=== PATIENT | female | born 1990 | race Caucasian/White ===

== ENCOUNTER → 2018-06-27 19:25 | Outpatient (CLI) | payer OTHER, SELFPAY | PROVIDERS: Family Provider Physician Assistant; PCP Physician Assistant; Visit Provider Physician Assistant | DX: N94.9 Unspecified condition associated with female genital organs and menstrual cycle (principal) | CPT/HCPCS: 87210 ==

== ENCOUNTER → 2020-01-23 08:53 | Outpatient (CLI) | payer OTHER, SELFPAY ==
[2020-01-23 10:03] LABS: Hematocrit 40.6 % (36-46); Hemoglobin 13.7 g/dL (12.0-16.0); Mean Corpuscular HGB Conc 33.9 % (30-36); Mean Corpuscular Hemoglobin 31.7 PG (26-34); Mean Corpuscular Volume 93.8 fL (80-100); Platelet Count 183 X10^3/uL (150-400); Red Blood Cell Count 4.33 X10^6/uL (4.0-5.2); White Blood Cell Count 4.4 X10^3/uL (4.5-11.0)
[2020-01-23 10:31] LABS: Alanine Aminotransferase 23 IU/L (<35); Albumin 4.3 g/dL (3.5-5.0); Albumin Globulin Ratio 1.3 (1.0-2.8); Alkaline Phosphatase 52 U/L (38-126); Aspartate Aminotransferase 26 IU/L (14-36); BUN Creatinine Ratio 17.9 (6-22); Bilirubin Total 0.5 mg/dL (0.2-1.3); Blood Urea Nitrogen 15 mg/dL (7-17); Calcium 9.5 mg/dL (8.4-10.2); Carbon Dioxide 27 mmol/L (22-32); Chloride 104 mmol/L (98-107); Cholesterol 281 mg/dL (140-199); Estimated Glomerular Filt Rate > 60.0 mL/min (>60); Globulin 3.4 g/dL (1.7-4.1); Glucose 88 mg/dL (70-100); HDL Cholesterol 52 mg/dL (40-60); HEMOLYSIS < 15 (0-50); LDL Cholesterol Calculated 192 mg/dL (<100); Potassium 4.2 mmol/L (3.4-5.1); Sodium 139 mmol/L (137-145); Total Protein 7.7 g/dL (6.3-8.2); Triglycerides 185 mg/dL (35-150)
== END ==
PROVIDERS: Family Provider Physician Assistant; PCP Nurse Practitioner Family; Referring Provider Nurse Practitioner Family; Visit Provider Nurse Practitioner Family
DX: Z00.00 Encounter for general adult medical examination without abnormal findings (principal); F41.9 Anxiety disorder, unspecified; Z13.6 Encounter for screening for cardiovascular disorders
CPT/HCPCS: 36415; 80053; 80061; 84443; 85027

== ENCOUNTER → 2020-07-27 16:40 | Outpatient (CLI) | payer OTHER, SELFPAY ==
[2020-07-27] MEDS: COVID-19 VACC #1, MRNA(MOD) 100 MCG/0.5 ML VIAL IM (16:45)
== END ==
PROVIDERS: Family Provider Physician Assistant; PCP Nurse Practitioner Family; Visit Provider Internal Medicine
DX: Z23 Encounter for immunization (principal)
CPT/HCPCS: 0011A; 91301

== ENCOUNTER → 2020-08-24 09:43 | Outpatient (CLI) | payer OTHER, SELFPAY ==
[2020-08-24] MEDS: COVID-19 VACC #2, MRNA(MOD) 100 MCG/0.5 ML VIAL IM (09:48)
== END ==
PROVIDERS: PCP Nurse Practitioner Family; Visit Provider Internal Medicine
DX: Z23 Encounter for immunization (principal)
CPT/HCPCS: 0012A; 91301

== ENCOUNTER → 2021-01-10 06:59 | Outpatient (CLI) | payer OTHER, SELFPAY ==
[2021-01-10 08:06] LABS: Hematocrit 39.2 % (36-46); Hemoglobin 13.2 g/dL (12.0-16.0); Mean Corpuscular HGB Conc 33.7 % (30-36); Mean Corpuscular Hemoglobin 32.1 PG (26-34); Mean Corpuscular Volume 95.1 fL (80-100); Platelet Count 187 X10^3/uL (150-400); Red Blood Cell Count 4.12 X10^6/uL (4.0-5.2); Red Cell Distribution Width 12.3 % (11.6-14.8); White Blood Cell Count 4.4 X10^3/uL (4.5-11.0)
[2021-01-10 08:33] LABS: Alanine Aminotransferase 15 IU/L (<35); Albumin 4.3 g/dL (3.5-5.0); Albumin Globulin Ratio 1.4 (1.0-2.8); Alkaline Phosphatase 41 U/L (38-126); Aspartate Aminotransferase 23 IU/L (14-36); BUN Creatinine Ratio 13.5 (6-22); Bilirubin Total 0.3 mg/dL (0.2-1.3); Blood Urea Nitrogen 10 mg/dL (7-17); Calcium 9.4 mg/dL (8.4-10.2); Carbon Dioxide 25 mmol/L (22-32); Chloride 105 mmol/L (98-107); Cholesterol 271 mg/dL (140-199); Estimated Glomerular Filt Rate > 60.0 mL/min (>60); Globulin 3.1 g/dL (1.7-4.1); Glucose 84 mg/dL (70-100); HDL Cholesterol 54 mg/dL (40-60); HEMOLYSIS < 15 (0-50); LDL Cholesterol Calculated 167 mg/dL (<100); Potassium 4.2 mmol/L (3.4-5.1); Sodium 137 mmol/L (137-145); Total Protein 7.4 g/dL (6.3-8.2); Triglycerides 248 mg/dL (35-150)
[2021-01-10 08:44] LABS: Vitamin D 25 Hydroxy (D3) 22.9 ng/mL (30.0-100.0)
[2021-01-10 09:21] LABS: Vitamin B12 Reflex MMA if <400 223 pg/mL (239-931)
[2021-01-12 00:55] LABS: Methylmalonic Acid,Serum 181 nmol/L (0-378)
[2021-01-12 12:09] LABS: C Peptide 0.9 ng/mL (1.1-4.4); Insulin Level Total 3.3 uIU/mL (2.6-24.9)
[2021-01-12 17:48] LABS: Beta-Hydroxybutyrate 1.1 mg/dL (.)
== END ==
PROVIDERS: PCP Nurse Practitioner Family; Referring Provider Nurse Practitioner Family; Visit Provider Nurse Practitioner Family
DX: E16.2 Hypoglycemia, unspecified (principal); E78.2 Mixed hyperlipidemia; F41.9 Anxiety disorder, unspecified; Z13.6 Encounter for screening for cardiovascular disorders; Z00.00 Encounter for general adult medical examination without abnormal findings
CPT/HCPCS: 36415; 80053; 80061; 82306; 82607; 83525; 83921; 84443; 84681; 85027

== ENCOUNTER → 2021-03-13 15:03 | Outpatient (CLI) | payer OTHER, SELFPAY ==
[2021-03-13 16:02] LABS: Cholesterol 271 mg/dL (140-199); HDL Cholesterol 60 mg/dL (40-60); LDL Cholesterol Calculated 180 mg/dL (<100); Triglycerides 154 mg/dL (35-150)
[2021-03-13 16:53] LABS: Vitamin B12 298 pg/mL (239-931)
[2021-03-13 17:27] LABS: Vitamin D 25 Hydroxy (D3) 50.8 ng/mL (30.0-100.0)
[2021-03-14 08:13] LABS: C Peptide 4.2 ng/mL (1.1-4.4); Insulin Level Total 21.8 uIU/mL (2.6-24.9)
== END ==
PROVIDERS: PCP Nurse Practitioner Family; Referring Provider Nurse Practitioner Family; Visit Provider Nurse Practitioner Family
DX: E53.9 Vitamin B deficiency, unspecified (principal); E55.9 Vitamin D deficiency, unspecified; E78.2 Mixed hyperlipidemia; E16.2 Hypoglycemia, unspecified; R89.9 Unspecified abnormal finding in specimens from other organs, systems and tissues
CPT/HCPCS: 36415; 80061; 82306; 82607; 83525; 84681

== ENCOUNTER → 2022-04-05 17:22 | Outpatient (CLI) | payer OTHER, SELFPAY ==
[2022-04-05 18:36] LABS: Influenza A - CEPHEID Flu A NEGATIVE (NEGATIVE); Influenza B - CEPHEID Flu B NEGATIVE (NEGATIVE); Respiratory Syncytial Virus Negative (Negative)
[2022-04-05 18:54] LABS: COVID-19 CEPHEID 4-PLEX PCR Negative (Negative)
== END ==
PROVIDERS: PCP Nurse Practitioner Family; Referring Provider Nurse Practitioner Family; Visit Provider Nurse Practitioner Family
DX: J06.9 Acute upper respiratory infection, unspecified (principal); Z20.822 Contact with and (suspected) exposure to COVID-19
CPT/HCPCS: 0241U

== ENCOUNTER → 2023-09-17 08:57 | Outpatient (CLI) | payer OTHER, SELFPAY | PROVIDERS: Visit Provider Physician Assistant Surgical | DX: J02.9 Acute pharyngitis, unspecified (principal) | CPT/HCPCS: 87070; 87147 ==

== ENCOUNTER → 2024-11-13 12:08 | Outpatient (CLI) | payer OTHER, SELFPAY ==
[2024-11-13 12:25] LABS: Add Manual Diff / Slide Review NO; Hematocrit 41.3 % (36-46); Hemoglobin 14.3 g/dL (12.0-16.0); Lymphocytes Absolute Auto 2400 /uL (1100-4500); Mean Corpuscular HGB Conc 34.6 % (30-36); Mean Corpuscular Hemoglobin 32.0 PG (26-34); Mean Corpuscular Volume 92.6 fL (80-100); Platelet Count 253 X10^3/uL (150-400)
[2024-11-13 12:35] LABS: Hemoglobin A1C% w Est Avg Glu 5.2 % (4.0-6.0)
[2024-11-13 12:48] LABS: HEMOLYSIS < 15 (0-50); Iron 160 ug/dL (37-170)
[2024-11-13 12:52] LABS: HDL Cholesterol 60 mg/dL (40-60); Triglycerides 247 mg/dL (35-150)
[2024-11-13 13:00] LABS: Cholesterol 332 mg/dL (140-199)
[2024-11-13 13:02] LABS: Percent Iron Saturation 38 % (15-50); Total Iron Binding Capacity 416 ug/dL (265-497); Transferrin 364 mg/dL (206-381)
[2024-11-13 13:23] LABS: TSH w/ Reflex to FT4 1.03 uIU/mL (0.47-4.68)
[2024-11-13 13:24] LABS: Ferritin 99 ng/mL (6-137)
[2024-11-13 13:41] LABS: Vitamin B12 218 pg/mL (239-931)
== END ==
PROVIDERS: PCP Family Medicine; Referring Provider Family Medicine; Visit Provider Family Medicine
DX: E53.9 Vitamin B deficiency, unspecified (principal); E55.9 Vitamin D deficiency, unspecified; F41.9 Anxiety disorder, unspecified; R53.83 Other fatigue; R63.5 Abnormal weight gain; E78.2 Mixed hyperlipidemia
CPT/HCPCS: 36415; 80061; 82607; 82652; 82728; 83036; 83540; 83550; 84443; 85025

== ENCOUNTER → 2025-01-08 08:47 | Outpatient (CLI) | payer OTHER, SELFPAY ==
[2025-01-08 11:08] LABS: Vitamin B12 Reflex MMA if <400 246 pg/mL (239-931)
== END ==
LOC: LAB 08:48
PROVIDERS: PCP Family Medicine; Referring Provider Family Medicine; Visit Provider Family Medicine
DX: E53.9 Vitamin B deficiency, unspecified (principal)
CPT/HCPCS: 36415; 82607; 83921